=== PATIENT | female | born 1995 | race Two or more races ===

== ENCOUNTER 2024-11-03 10:43 | Emergency (ER) | payer OTHER, SELFPAY ==
[2024-11-03 10:56] VITALS: BP 114/76; PULSE 67; RESP 18; TEMP 36.3; O2SAT 98
--- NOTE | 2024-11-03 11:00 | ED_ITS ---
HPI - Abdominal Pain General Chief Complaint: Abdominal Pain Stated Complaint: Abdominal Pain Time Seen by Provider: 11/03/24 11:00 Source: patient and RN notes reviewed Mode of arrival: ambulatory Limitations: no limitations History of Present Illness HPI narrative: 29 y/o female presented for c/o right sided mid abdominal pain. Onset yesterday after she woke. Says the pain was manageable throughout the day but worse last night and this morning. Pt had normal po intake yesterday but did not eat today thinking that would help the pain. She recalls moving a refrigerator the day prior. denies n/v/d/f/c. LMP one week. LBM last night, normal. Pain is described as sharp and is worse with movement 7/10, better when laying down. Related Data Home Medications ?Medication ?Instructions ?Recorded ?Confirmed ?Last Taken ?Type levothyroxine 75 mcg tablet 75 mcg PO QDAY 11/03/24 Unknown History (Levoxyl) Allergies Allergy/AdvReac Type Severity Reaction Status Date / Time No Known Allergies Allergy Verified 11/03/24 11:11 Review of Systems 2 Review of Systems: CONSTITUTIONAL: Denies body aches, fever, chills ENT: Denies rhinorrhea, congestion CARDIOVASCULAR: Denies chest pain, palpitations, or edema. RESPIRATORY: Denies cough or dyspnea. GASTROINTESTINAL: Endorses abdominal pain, Denies nausea, vomiting, diarrhea hematochezia, melena GENITOURINARY: Denies dysuria, hematuria, or CVA tenderness. SKIN: Denies rash, or wounds. MUSCULOSKELETAL: Denies back pain, joint pain, or myalgia. NEUROLOGIC: Denies headache All systems reviewed & are unremarkable except as noted in HPI and below PMFSH Comments At time of signature, I have reviewed and agree with nursing past medical, surgical, social and family history unless otherwise noted. Please see nursing chart for further information. There is no relevant family history pertinent to the presenting complaint Exam 2 Narrative: GENERAL: Well-appearing, and in no acute distress. EYES: EOMI. Conjunctivae normal. ENT: Mucous membranes pink and moist. CHEST: No respiratory distress. Clear to auscultation. HEART: Regular rate and rhythm. No murmur appreciated. Normal peripheral pulses. ABDOMEN: abd soft, nondistended, normal active bowel sounds. Tender abdomen to right mid/lateral area. Negative Braun?s sign negative McBurney's point. No periumbilical tenderness. No Supra public tenderness or distension. No guarding, rebound tenderness, asymmetry EXTREMITIES: Normal range of motion. No edema. SKIN: Warm, dry, no rash. Capillary refill normal. Normal skin turgor. NEURO: No focal deficits. Alert and oriented x3. PSYCH: Normal affect. GI: Abdomen image: 1. location of pain Course Course Emergency Course: Patient is aware of diagnosis, understands and agrees to treatment plan. Anticipatory guidance given. Patient agrees to follow-up as directed and is aware of reasons to seek care at the emergency department. Portions of this record may have been created with voice recognition software Level of Care: Express Care Visit MDM - Abdominal Pain MDM Narrative Medical decision making narrative: Discussed physical exam findings; pain is mid/lateral right abdomen. Negative Braun's sign and McBurney's point. Neg . Discussed at length possible etiologies. Pt is overall well appearing, denies n/v/d/constipation or fever. VSS. No evidence of surgical emergency at this time. Patient denies post- prandial pain. No pain-out of proportion. Shared decision making Pt is agreeable to monitor symptoms, try antiinflammatory as she moved a refrigerator the day prior to onset, and will go to the ER should symptoms persist/worsen. Advised supportive measures and signs/symptoms to go to the ER. Pt is appropriate for outpt treatment and f/u. Differential Diagnosis Differential diagnosis: Likely other (gallbladder disease, PUD, appendicitis, pancreatitis, hepatitis, pyelonephritis, renal stone, GERD, bowel obstruction, PE, AAA appendicitis, peritonitis, crohn's, diverticulitis, hernia, ischemic colitis, mesenteric ischemia, mittelscmerz, ovarian cyst/torsion, PID ) Discharge Plan Discharge Clinical Impression: Abdominal pain Qualifiers: Abdominal location: unspecified location Qualified Code(s): R10.9 - Unspecified abdominal pain Patient Disposition: Home Condition: Stable Instructions: Antibiotic Form, Abdominal Pain (ED) Additional Instructions: Stay hydrated No lifting, pushing, pulling; Rest. Heating pad to the site as needed Take Tylenol/ibuprofen as needed for pain. Take with food We discussed this could be a muscle strain however, we are not able to rule out any other concerning sources (such as appendicitis, gall bladder pain, intestinal source etc) and you are aware to go to the ER for any worsening symptoms or concerns. You should go to the hospital if you experience persistent nausea and vomiting that does not resolve and does not allow you to tolerate any food or fluids, fevers, increasing abdominal pain, persistent diarrhea, dizziness, fainting, or for any other concerns. Follow up with primary care provider in 3 days. Patient Language: Arabic Prescriptions: New ibuprofen 600 mg tablet 600 mg PO TID PRN (Reason: pain) Qty: 14 0RF No Action levothyroxine [Levoxyl] 75 mcg tablet 75 mcg PO QDAY Follow-up/Referrals: PHYSICIAN,[employer] [Primary Care Provider] - Stand Alone Forms: Work/School Release IP Time of Disposition: 11:26
[2024-11-03 11:18] LABS: BEDSIDEPREGUCG Negative (Negative)
== END 2024-11-03 11:32 | disposition home or self-care (01) ==
PROVIDERS: Emergency Provider Nurse Practitioner Family
DX: R10.9 Unspecified abdominal pain (principal); E03.9 Hypothyroidism, unspecified
CPT/HCPCS: 81025; 99203; G0463

== ENCOUNTER 2025-02-23 21:56 | Emergency (ER) | payer OTHER, SELFPAY ==
[2025-02-23 22:00] VITALS: BP 116/94; PULSE 84; RESP 16; TEMP 36.4; O2SAT 100
== END 2025-02-24 02:07 | disposition left against medical advice (07) ==
DX: M79.642 Pain in left hand (principal)
CPT/HCPCS: 99199